=== PATIENT | male | born 1985 | race Caucasian/White ===

== ENCOUNTER 2023-11-10 10:35 | Observation (INO) ==
--- NOTE | 2023-11-10 10:52 | ED.PDOC ---
General ED Provider: Dr. ALAINA SIN MD Chief Complaint: Abdominal Pain Stated Complaint: Patient with a history of ulcerative colitis complains of upper abdominal pain since yesterday associated with frequent episodes of watery diarrhea. Patient unsure of fever, denies chills, nausea, vomiting, urinary symptoms, ration of the pain pain to his back. Patient rates his pain as 7/10. Time Seen by Provider: 11/10/23 10:50 Mode of Arrival: Walk-In Information Source: Patient Exam Limitations: No limitations and Clinical condition Nursing and Triage Documentation Reviewed and Agree: Yes What is Opioid Naive?: *Opioid Naive implies the patient is not already taking opioids or not chronically receiving opioids on a daily basis. *PRN dosing is not "usually" associated with tolerance. *Patients are at higher risk of over-sedation and aspiration. What is Opioid Tolerant?: *Opioid Tolerance implies less than the expected response to an opioid. *Acquired tolerance is defined by the patient taking 60mg of oral morphine daily (or equianalgesic dose of another opioid) for 1 week or more. *Often associated with chronic pain. *May take more than usual dose to achieve desired pain control. Review of Systems Review Of Systems Constitutional: Reports No symptoms Eyes: Reports No symptoms Ears, Nose, Mouth, Throat: Reports No symptoms Respiratory: Reports No symptoms Cardiac: Reports No symptoms GI: Reports Abdominal pain and Diarrhea : Reports No symptoms Musculoskeletal: Reports No symptoms Skin: Reports No symptoms Neurological: Reports No symptoms Endocrine: Reports No symptoms Hematologic/Lymphatic: Reports No symptoms All Other Systems: Reviewed and Negative Physical Exam Physical Exam Appearance: Reports Well-appearing Ill-appearing: None Pain Distress: None Eyes: Reports RODERICK and EOMI ENT: Reports Ears normal Neck: Supple Respiratory: Reports Airway patent, Breath sounds clear and Breath sounds equal Cardiovascular: Reports RRR, Pulses normal and No murmur GI/: Reports Soft, Bowel sounds normal, No Organomegaly and Tender (There is moderate epigastric and left upper quadrant tenderness with no guarding, no palpable mass noted.) Musculoskeletal: Reports Normal strength, ROM intact, No edema and No calf tenderness Skin: Reports Warm and Dry Neurological: Reports Sensation intact and Motor intact Psychiatric: Reports Affect appropriate Critical Care Note Critical Care Note Total Critical Care Time (mins): 0 Course Course 11/10/23 11:14 11/10/23 11:14 Orders, Labs, Meds: Lab Review 11/10/23 11:14 WBC 7.65 RBC 4.82 Hgb 14.5 Hct 43.0 MCV 89.2 MCH 30.1 MCHC 33.7 RDW Coeff of Prateek 12.0 Plt Count 163 Immature Gran % (Auto) 0.3 Neut % (Auto) 75.0 Lymph % (Auto) 11.0 [place] % (Auto) 13.1 H Eos % (Auto) 0.3 Baso % (Auto) 0.3 Neut # (Auto) 5.8 Lymph # (Auto) 0.8 [place] # (Auto) 1.0 Eos # (Auto) 0.0 Baso # (Auto) 0.0 Immature Gran # (Auto) 0.0 Sodium 136.8 Potassium 4.02 Chloride 104.5 Carbon Dioxide 26.9 Anion Gap 9.42 BUN 11.3 Creatinine 1.22 H Estimated GFR (MDRD) 66.00 BUN/Creatinine Ratio 9.26 Glucose 114.1 H Calcium 9.05 Magnesium 1.91 Total Bilirubin 0.39 AST 34.3 ALT 20.5 Alkaline Phosphatase 48.9 Total Protein 7.30 Albumin 4.34 Globulin 2.96 Albumin/Globulin Ratio 1.46 Lipase 152.1 Orders Category Date Time Status NPO REMINDER: IMAGING ONCE CARE 11/10/23 10:58 Active BLOOD CULTURE (ED ONLY) Stat LAB 11/10/23 12:56 Received CBC W/ AUTO DIFF Stat LAB 11/10/23 11:14 Completed CMP [COMPREHENSIVE METABOLIC PANEL] Stat LAB 11/10/23 11:14 Completed LIPASE Stat LAB 11/10/23 11:14 Completed MAGNESIUM Stat LAB 11/10/23 11:14 Completed ROTAVIRUS,STOOL Stat LAB 11/10/23 10:59 Uncollected STOOL CULTURE Stat LAB 11/10/23 Uncollected URINALYSIS C & S IF INDICATED Stat LAB 11/10/23 10:59 Uncollected Ketorolac Tromethamine [Toradol] Meds 11/10/23 10:57 Discontinued 30 mg IVP ONCE STA Levofloxacin/D5w [Levaquin 750 mg/150 ml D5w] Meds 11/10/23 12:28 Active 750 mg in 150 ml IV ONCE Sodium Chloride 0.9% [Sodium Chloride] 1,000 ml Meds 11/10/23 10:[address] ABDOMEN/PELVIS W CONTRAST Stat RADS 11/10/23 10:57 Completed Medications Generic Name Dose Route Start Last Admin Trade Name Luiz PRN Reason Stop Dose Admin Levofloxacin/Dextrose 750 mg in 150 mls @ 100 mls/hr 11/10/23 12:28 11/10/23 13:06 Levaquin 750 Mg/150 Ml D5w IV 11/10/23 13:57 100 mls/hr ONCE ONE Administration Discontinued Medications Generic Name Dose Route Start Last Admin Trade Name Freq PRN Reason Stop Dose Admin Sodium Chloride 1,000 mls @ 1,000 mls/hr 11/10/23 10:57 11/10/23 12:28 Sodium Chloride IV 11/10/23 11:56 Infused BOLUS ONE Infusion Ketorolac Tromethamine 30 mg 11/10/23 10:57 11/10/23 11:24 Ketorolac Tromethamine 30 Mg/Ml Vial IVP 11/10/23 10:58 30 mg ONCE STA Administration Vital Signs: Temp Pulse Resp BP Pulse Ox 11/10/23 10:48 98.5 F 70 18 123/81 97 Discharge Plan Discharge Patient Disposition: ADMITTED INPATIENT Discharge Problem: Acute colitis Prescriptions: No Action mesalamine PO Did you review [place] [employer] for ALL controlled substances?: Not Applicable ED Provider: ALAINA SIN Condition: Stable Physician Progress Note: History obtained from the patient who has a history of ulcerative colitis, complains acute onset of epigastric and upper abdominal pain associated with frequent episodes of watery diarrhea. Patient with a history of fever, denies chills melena urinary symptoms and radiation of pain to his back. Patient rates his pain scale is 7/10. Patient given IV fluids normal saline 1 L bolus of 1 hour Toradol 30 mg IV The abdominal pelvic CT scan with intravenous contrast interpreted by radiology consistent with liver, gallbladder, bile ducts, pancreas, spleen and adrenal glands over normal limits the GI tract normal caliber there is a normal appendix there is marked wall thickening submucosal edema of the ascending colon and transverse colon suggestive of colitis there are punctate nonobstructing bilateral renal calculi After 2 sets of blood cultures were obtained the patient was administered Levaquin 750 mg IV piggyback Differential diagnosis: 1) acute ascending and transverse colitis Discussed with hospitalist Adina Dawson at 1310 for inpatient admission
[2023-11-10 11:17] LABS: BASOPHILS % (AUTO) 0.3 % (0.0-3.0); EOSINOPHILS % (AUTO) 0.3 % (0.0-7.0); HEMOGLOBIN 14.5 g/dl (14.0-18.0); IMMATURE GRANULOCYTE % (AUTO) 0.3 % (0.0-5.0); LYMPHOCYTES # (AUTO) 0.8 K/uL (0.60-3.4); MEAN CORPUSCULAR HEMOGLOBIN 30.1 pg (27.0-31.0); MEAN CORPUSCULAR HGB CONC 33.7 (31.8-35.4); MEAN CORPUSCULAR VOLUME 89.2 fl (80.0-94.0); MONOCYTES % (AUTO) 13.1 (0-10); NEUTROPHILS # (AUTO) 5.8 K/ul (2.0-6.9); PLATELET COUNT 163 10^3/uL (140-440); RED BLOOD COUNT 4.82 10^6/ul (4.70-6.10); WHITE BLOOD COUNT 7.65 K/ul (4.2-10.2)
[2023-11-10] MEDS: SODIUM CHLORIDE 1,000 ML IV ONE (11:23)
[2023-11-10] MEDS: TORADOL IVP STA (11:24)
[2023-11-10 11:32] LABS: ALANINE AMINOTRANSFERASE 20.5 U/L (0-50); ALBUMIN 4.34 g/dL (3.5-5.0); ALKALINE PHOSPHATASE 48.9 U/L (38-126); ASPARTATE AMINO TRANSFERASE 34.3 U/L (17-59); BILIRUBIN,TOTAL 0.39 mg/dL (0.2-1.3); BLOOD UREA NITROGEN 11.3 mg/dL (9-20); CALCIUM 9.05 mg/dL (8.4-10.2); CARBON DIOXIDE 26.9 mmol/L (22-30.0); CHLORIDE 104.5 mmol/L (98-107); CREATININE 1.22 mg/dL (0.60-1.10); GLUCOSE 114.1 mg/dL (74-106); LIPASE 152.1 U/L (23-300); MAGNESIUM 1.91 mg/dL (1.6-2.3); POTASSIUM 4.02 mmol/L (3.5-5.1); SODIUM 136.8 mmol/L (134.5-145); TOTAL PROTEIN 7.3 g/dL (6.3-8.2)
--- NOTE | 2023-11-10 12:23 | CT ---
EXAM: CT OF THE ABDOMEN AND PELVIS WITH CONTRAST COMPARISON: None. HISTORY: Abdominal pain. Diarrhea. TECHNIQUE: Axial CT images were obtained through the abdomen and pelvis with the administration of in travenous contrast. Coronal and sagittal reformatted images were also submitted for interpretation. FINDINGS: Liver: Possible hepatic steatosis. Correlation LFTs recommended. Liver is enlarged and 19.5 cm. Gallbladder: No gallstones. Bile ducts: No intra or extrahepatic biliary ductal dilatation. Pancreas: No lesions. The main pancreatic duct is not dilated. Spleen: The spleen is enlarged measuring up to 13.3 cm. Adrenal glands: Within normal limits. Kidneys: No hydronephrosis. Punctate nonobstructing bilateral renal calculi. Ureters: Within normal limits Urinary bladder: Bladder wall thickening which may be secondary to underdistension versus cystitis ve rsus bladder outlet obstruction. Correlation with urinalysis recommended. Reproductive organs: No pelvic masses. Peritoneum: No ascites or free intraperitoneal air. Gastrointestinal tract: Normal caliber. Normal appendix. Marked wall thickening submucosal edema e jeramie in the ascending colon and transverse colon suggestive of colitis. Clinical correlation advised . Lymph nodes: No lymphadenopathy. Vessels: Normal caliber. Abdominal wall: Within normal limits. Osseous structures: No acute findings. Lower thorax: Minimal atelectasis. IMPRESSION: - Marked wall thickening in the ascending colon and transverse colon suggestive of colitis. Clinical correlation advised. - Bladder wall thickening which may be secondary to underdistension versus cystitis versus bladder ou tlet obstruction. Correlation with urinalysis recommended. - Punctate nonobstructing bilateral renal calculi. - Hepatomegaly and possible hepatic steatosis. Correlation with LFTs recommended. - Mild splenomegaly of unknown clinical significance. All CT scans are performed using dose optimization techniques as appropriate to the performed exam an d include at least one of the following: Automated exposure control, adjustment of the mA and/or kV according t o size, and the use of iterative reconstruction technique.
[2023-11-10] MEDS: LEVAQUIN 750 MG/150 ML D5W 750 MG/150 ML BAG IV ONE (13:06)
--- NOTE | 2023-11-10 13:18 | PCM ---
Date of Service Date Seen by Provider: 11/10/23 Time Seen by Provider: 13:30 Admit Day/Time Admission Date: 11/10/23 Admission Time: 13:16 Reason for Admission Chief Complaint: ACUTE COLITIS Hospital Provider Hospital Provider: Adina Dawson PA-C, [facility] History of Present Illness History of Present Illness: Patient is a 38 year old male with pmhx of ulcerative colitis who presents for worsening epigastric pain and diarrhea since yesterday. Patient states he drank alcohol two days ago which he contributes to this flare up. He had upper and lower scopes 1-2 months ago "which looked good." He does not currently have a GI as he was at [place] when he had this work up. He takes mesalamine for maintenance therapy. He denies blood in his stool. In ER labs are unremarkable but CT a/p showed marked wall thickening of ascending and transverse colon suggestive of colitis. He was given levaquin and toradol. He was admitted to med surg. Case Discussed With Case Discussed With: Patient's case was discussed with the ER Physicians, Dr. Brown Allergies Allergies Allergy/AdvReac Type Severity Reaction Status Date / Time chlorhexidine AdvReac Rash Verified 11/10/23 10:48 [From ChloraPrep Clear] isopropyl alcohol AdvReac Rash Verified 11/10/23 10:48 [From ChloraPrep Clear] Current Medications Home Medications mesalamine PO 11/10/23 [History Last Taken Unknown] Home Acetaminophen (Acetaminophen 325 Mg Tablet) 650 mg PO Q4H PRN PRN Reason: Mild Pain Levofloxacin/Dextrose (Levaquin 750 Mg/150 Ml D5w) 750 mg in 150 mls @ 100 mls/hr IV ONCE ONE Stop: 11/10/23 13:57 Last Admin: 11/10/23 13:06 Dose: 100 mls/hr Methylprednisolone Sodium Succinate (Methylprednisolone Sod Succ/Pf 40 Mg/Ml Vial) 20 mg IVP Q8HR LONNIE Morphine Sulfate (Morphine Sulfate 2 Mg/Ml Syringe) 1 mg IVP Q6H PRN PRN Reason: MODERATE PAIN Ondansetron HCl (Ondansetron Hcl/Pf 4 Mg/2 Ml Sdv) 4 mg IVP Q6H PRN PRN Reason: Nausea / Vomiting Discontinued Medications Sodium Chloride (Sodium Chloride) 1,000 mls @ 1,000 mls/hr IV BOLUS ONE Stop: 11/10/23 11:56 Last Infusion: 11/10/23 12:28 Dose: Infused Ketorolac Tromethamine (Ketorolac Tromethamine 30 Mg/Ml Vial) 30 mg IVP ONCE STA Stop: 11/10/23 10:58 Last Admin: 11/10/23 11:24 Dose: 30 mg Opioid Naive vs. Tolerant Does Patient Take Opioids?: No Is Patient Opioid Naive?: Yes What is Opioid Naive?: *Opioid Naive implies the patient is not already taking opioids or not chr onically receiving opioids on a daily basis. *PRN dosing is not "usually" associated with tolerance. *Patients are at higher risk of over-sedation and aspiration. Is Patient Opioid Tolerant?: No What is Opioid Tolerant?: *Opioid Tolerance implies less than the expected response to an opioid. *Acquired tolerance is defined by the patient taking 60mg of oral morphine daily (or equianalgesic dose of another opioid) for 1 week or more. *Often associated with chronic pain. *May take more than usual dose to achieve desired pain control. Review of Systems Constitutional: Denies Fever or Weakness Cardiovascular: Denies Chest pain, Chest Pressure or Edema Respiratory: Denies Cough or Shortness of air Gastrointestinal: Reports Diarrhea and Abdominal pain; Denies Nausea, Vomiting, Black Tarry Stools or Melena Genitourinary: Denies Dysuria or Hematuria Dermatologic: Denies Rashes Physical examination Most Recent Vital Signs: Most Recent Vital Signs Temperature 98.5 F 11/10/23 10:48 Temperature Source Oral 11/10/23 10:48 Pulse Rate 70 11/10/23 10:48 Respiratory Rate 18 11/10/23 10:48 Blood Pressure 123/81 11/10/23 10:48 O2 Sat by Pulse Oximetry 97 11/10/23 10:48 Height 5 ft 11 in 11/10/23 10:48 Weight 243 lb 2.718 oz 11/10/23 10:48 Appearance: Positive Well-appearing, Well-nourished, No Apparent Distress and Alert and Oriented x3 Skin: Positive [place], Warm, Good Turgor and Good Color HEENT: Positive Normocephalic and Atraumatic Neck: Positive Supple and Midline Trachea Chest/Lungs: Positive Clear to Auscultation Bilaterally; Negative Rales, Rhonci or Wheezes Heart: Positive RRR GI/: Positive Soft, Bowel Sounds Normal, No Distention and Tender (+epigastric area ); Negative Nontender Extremities: Negative Edema Neurological: Positive Cranial Nerves Intact, Alert, Oriented and Muscle Strength 5/5 in Upper and Lower Extremities Bilaterally Psychiatric: Positive Oriented x4, Appropriate Mood and Appropriate Affect Labs This Visit Labs This Visit: Labs This Visit 11/10/23 11:14 WBC 7.65 RBC 4.82 Hgb 14.5 Hct 43.0 MCV 89.2 MCH 30.1 MCHC 33.7 RDW Coeff of Prateek 12.0 Plt Count 163 Immature Gran % (Auto) 0.3 Neut % (Auto) 75.0 Lymph % (Auto) 11.0 [place] % (Auto) 13.1 H Eos % (Auto) 0.3 Baso % (Auto) 0.3 Neut # (Auto) 5.8 Lymph # (Auto) 0.8 [place] # (Auto) 1.0 Eos # (Auto) 0.0 Baso # (Auto) 0.0 Immature Gran # (Auto) 0.0 Sodium 136.8 Potassium 4.02 Chloride 104.5 Carbon Dioxide 26.9 Anion Gap 9.42 BUN 11.3 Creatinine 1.22 H Estimated GFR (MDRD) 66.00 BUN/Creatinine Ratio 9.26 Glucose 114.1 H Calcium 9.05 Magnesium 1.91 Total Bilirubin 0.39 AST 34.3 ALT 20.5 Alkaline Phosphatase 48.9 Total Protein 7.30 Albumin 4.34 Globulin 2.96 Albumin/Globulin Ratio 1.46 Lipase 152.1 Imaging Imaging: EXAM: CT OF THE ABDOMEN AND PELVIS WITH CONTRAST COMPARISON: None. HISTORY: Abdominal pain. Diarrhea TECHNIQUE: Axial CT images were obtained through the abdomen and pelvis with the administration of intravenous contrast. Coronal and sagittal reformatted images were also submitted for interpretation. FINDINGS: Liver: Possible hepatic steatosis. Correlation LFTs recommended. Liver is enlarged and 19.5 cm. Gallbladder: No gallstones. Bile ducts: No intra or extrahepatic biliary ductal dilatation. Pancreas: No lesions. The main pancreatic duct is not dilated. Spleen: The spleen is enlarged measuring up to 13.3 cm. Adrenal glands: Within normal limits. Kidneys: No hydronephrosis. Punctate nonobstructing bilateral renal calculi. Ureters: Within normal limits Urinary bladder: Bladder wall thickening which may be secondary to underdistension versus cystitis versus bladder outlet obstruction. Correlation with urinalysis recommended. Reproductive organs: No pelvic masses. Peritoneum: No ascites or free intraperitoneal air. Gastrointestinal tract: Normal caliber. Normal appendix. Marked wall thickening submucosal edema edema in the ascending colon and transverse colon suggestive of colitis. Clinical correlation advised. Lymph nodes: No lymphadenopathy. Vessels: Normal caliber. Abdominal wall: Within normal limits. Osseous structures: No acute findings. Lower thorax: Minimal atelectasis. IMPRESSION: - Marked wall thickening in the ascending colon and transverse colon suggestive of colitis. Clinical correlation advised. - Bladder wall thickening which may be secondary to underdistension versus cystitis versus bladder outlet obstruction. Correlation with urinalysis recommended. - Punctate nonobstructing bilateral renal calculi. - Hepatomegaly and possible hepatic steatosis. Correlation with LFTs recommended. - Mild splenomegaly of unknown clinical significance. Review Statement Review Statement: I have independently reviewed and interpreted the labs/EKGs/imaging that were ordered by the ER provider. I have reviewed all outside records that are available currently in our EMR including imaging/notes/labs from previous visits. Plan Plan: 1. Acute ulcerative colitis flare - Cont mesalamine. Start solumedrol 20 mg IVP q8hrs. Regular diet if no vomiting. Pain control with tylenol or morphine prn. Zofran prn for n/v. Will need outpt GI follow up. DVT Prophylaxis: Ambulation Time Spent: Greater than 80 minutes spent with patient, 50% of the time spent with this patient was devoted to counseling and coordination of care. Advanced Care Plannin minutes spent discussing advance care planning. Admit to: Inpt Discussed Plan of Care with Dr. Nathaniel Gomez. Medications Medication Orders: Medications Ordered Category Date Time Status Levofloxacin/D5w [Levaquin 750 mg/150 ml D5w] Meds 11/10/23 12:28 Active 750 mg in 150 ml IV ONCE
[2023-11-10] MEDS ORDERED: TYLENOL PO PRN (13:47)
[2023-11-10] MEDS ORDERED: MORPHINE 2 MG/ML SYRINGE IVP PRN (13:47)
[2023-11-10] MEDS ORDERED: ZOFRAN 4 MG/2 ML IVP PRN (13:47)
[2023-11-10 13:50] LABS: SARS COV-2 RNA RAPID NAAT NEGATIVE (NEGATIVE)
[2023-11-10 14:35] VITALS: BMI 34.4
[2023-11-10] MEDS: SOLU-MEDROL 40 MG IVP SCH (14:53)
[2023-11-10] MEDS: TORADOL IVP PRN (19:52)
[2023-11-10 20:57] VITALS: RESP 18
[2023-11-10 20:59] LABS: BILIRUBIN,URINE Negative (NEGATIVE); CLARITY,URINE Clear (CLEAR); COLOR,URINE Yellow (YELLOW); GLUCOSE, URINE (UA) Negative (NEGATIVE); KETONES,URINE Trace (NEGATIVE); LEUKOCYTE ESTERASE ,URINE Negative (NEGATIVE); NITRITE,URINE Negative (NEGATIVE); PROTEIN,URINE Negative (NEGATIVE); URINE, BLOOD Trace-intact (NEGATIVE); UROBILINOGEN,URINE 0.2 (0.2)
[2023-11-10 21:02] LABS: SQUAMOUS EPITHELIAL CELL,UR 0-2 (0-5)
[2023-11-11 05:15] VITALS: BP 139/74; PULSE 53; TEMP 97
[2023-11-11 05:18] LABS: IMMATURE GRANULOCYTE % (AUTO) 0.3 % (0.0-5.0); LYMPHOCYTES # (AUTO) 0.8 K/uL (0.60-3.4); LYMPHOCYTES % (AUTO) 11.1 (10.0-50.0); MEAN CORPUSCULAR HGB CONC 33.3 (31.8-35.4); MEAN CORPUSCULAR VOLUME 89.9 fl (80.0-94.0); MONOCYTES # (AUTO) 0.4 K/uL (0.4-2.0); MONOCYTES % (AUTO) 6.3 (0-10); NEUTROPHILS # (AUTO) 5.7 K/ul (2.0-6.9); NEUTROPHILS % (AUTO) 82.3 % (42.2-75.2); PLATELET COUNT 160 10^3/uL (140-440); RED BLOOD COUNT 4.67 10^6/ul (4.70-6.10); WHITE BLOOD COUNT 6.93 K/ul (4.2-10.2)
[2023-11-11 05:35] LABS: ALANINE AMINOTRANSFERASE 18.9 U/L (0-50); ALBUMIN 4.2 g/dL (3.5-5.0); ALKALINE PHOSPHATASE 43.6 U/L (38-126); ASPARTATE AMINO TRANSFERASE 29.9 U/L (17-59); BILIRUBIN,TOTAL 0.3 mg/dL (0.2-1.3); BLOOD UREA NITROGEN 11.6 mg/dL (9-20); CALCIUM 9.15 mg/dL (8.4-10.2); CARBON DIOXIDE 23.9 mmol/L (22-30.0); CHLORIDE 106.8 mmol/L (98-107); CREATININE 1.07 mg/dL (0.60-1.10); GLUCOSE 150.2 mg/dL (74-106); POTASSIUM 4.46 mmol/L (3.5-5.1); SODIUM 137.6 mmol/L (134.5-145); TOTAL PROTEIN 7.2 g/dL (6.3-8.2)
[2023-11-11] MEDS: MESALAMINE 1.2 GM PO SCH (07:19)
--- NOTE | 2023-11-11 09:06 | PCM.SS ---
Provider Provider: YESY LIU, [facility] Chief Complaint Reason For Visit: ACUTE COLITIS History of Present Illness History of Present Illness: Admitted 11/10/23 13:54, this 38 year old /WHITE/M [] [facility] Surgical History (Updated 11/10/23 @ 14:29 by DANN ROBERTSON, RN) History of rhinoplasty Z98.890 - Other specified postprocedural states (ICD-10) History of hip surgery Z98.890 - Other specified postprocedural states (ICD-10) Family History (Updated 11/10/23 @ 14:29 by DANN ROBERTSON, RN) Other No known health problems Social History (Updated 11/10/23 @ 14:29 by DANN ROBERTSON, RN) Smoking and tobacco status: Never smoker Substance use type: marijuana Medications Mecications: Medications at Discharge (Home Meds & RX) mesalamine 1.2 g PO BID 11/10/23 Allergies Allergies Allergy/AdvReac Type Severity Reaction Status Date / Time chlorhexidine AdvReac Rash Verified 11/10/23 10:48 [From ChloraPrep Clear] isopropyl alcohol AdvReac Rash Verified 11/10/23 10:48 [From ChloraPrep Clear] Vital Signs (Last 4 Hours) Vital Signs Last 4 Hours: Vital Signs: Last 4 Hours 11/11/23 05:14 Temperature 97.0 F L Temperature Source Temporal Artery Scan Pulse Rate 53 L Respiratory Rate 18 Blood Pressure 139/74 Blood Pressure Mean 95 Blood Pressure Location Left Arm Blood Pressure Position Supine O2 Sat by Pulse Oximetry 95 Oxygen Delivery Method Room Air Labs This Visit Labs This Visit: Labs This Visit 11/10/23 11/10/23 11/10/23 11:14 13:25 20:53 WBC 7.65 RBC 4.82 Hgb 14.5 Hct 43.0 MCV 89.2 MCH 30.1 MCHC 33.7 RDW Coeff of Prateek 12.0 Plt Count 163 Immature Gran % (Auto) 0.3 Neut % (Auto) 75.0 Lymph % (Auto) 11.0 [place] % (Auto) 13.1 H Eos % (Auto) 0.3 Baso % (Auto) 0.3 Neut # (Auto) 5.8 Lymph # (Auto) 0.8 [place] # (Auto) 1.0 Eos # (Auto) 0.0 Baso # (Auto) 0.0 Immature Gran # (Auto) 0.0 Sodium 136.8 Potassium 4.02 Chloride 104.5 Carbon Dioxide 26.9 Anion Gap 9.42 BUN 11.3 Creatinine 1.22 H Estimated GFR (MDRD) 66.00 BUN/Creatinine Ratio 9.26 Glucose 114.1 H Calcium 9.05 Magnesium 1.91 Total Bilirubin 0.39 AST 34.3 ALT 20.5 Alkaline Phosphatase 48.9 Total Protein 7.30 Albumin 4.34 Globulin 2.96 Albumin/Globulin Ratio 1.46 Lipase 152.1 Urine Color Yellow Urine Clarity Clear Urine pH 7.0 Ur Specific [place] 1.025 Urine Protein Negative Urine Glucose (UA) Negative Urine Ketones Trace H Urine Blood Trace-intact H Urine Nitrite Negative Urine Bilirubin Negative Urine Urobilinogen 0.2 Ur Leukocyte Esterase Negative Urine Microscopic RBC 2-5 Ur Squamous Epith Cells 0-2 SARS CoV-2 RNA Rapid BRI Negative 11/11/23 05:13 WBC 6.93 RBC 4.67 L Hgb 14.0 Hct 42.0 MCV 89.9 MCH 30.0 MCHC 33.3 RDW Coeff of Prateek 12.0 Plt Count 160 Immature Gran % (Auto) 0.3 Neut % (Auto) 82.3 H Lymph % (Auto) 11.1 [place] % (Auto) 6.3 Eos % (Auto) 0.0 Baso % (Auto) 0.0 Neut # (Auto) 5.7 Lymph # (Auto) 0.8 [place] # (Auto) 0.4 Eos # (Auto) 0.0 Baso # (Auto) 0.0 Immature Gran # (Auto) 0.0 Sodium 137.6 Potassium 4.46 Chloride 106.8 Carbon Dioxide 23.9 Anion Gap 11.36 BUN 11.6 Creatinine 1.07 Estimated GFR (MDRD) 77.00 BUN/Creatinine Ratio 10.84 Glucose 150.2 H Calcium 9.15 Magnesium Total Bilirubin 0.30 AST 29.9 ALT 18.9 Alkaline Phosphatase 43.6 Total Protein 7.20 Albumin 4.20 Globulin 3.00 Albumin/Globulin Ratio 1.40 Lipase Urine Color Urine Clarity Urine pH Ur Specific [place] Urine Protein Urine Glucose (UA) Urine Ketones Urine Blood Urine Nitrite Urine Bilirubin Urine Urobilinogen Ur Leukocyte Esterase Urine Microscopic RBC Ur Squamous Epith Cells SARS CoV-2 RNA Rapid BRI Review Review Statement: I have independently reviewed and interpreted the labs/EKGs/imaging that were ordered by the ER provider. I have reviewed all outside records that are available currently in our EMR including imaging/notes/labs from previous visits. Plan Additional Planning: Case discussed with ED Physician, []. DVT Prophylaxis: Advanced Care Planning: [] minutes spent discussing advance care planning. Smoking Cessation: 3-10 minutes spent discussing smoking cessation. Disposition: Admit to: Discussed Plan of Care with DrJoseph [] If patient discharged with Left Ventricular Systolic Dysfunction: Discharged with a beta cuong? [] If no, why not? [] Discharged with an edison/arb? [] If no, why not? [] Review With Patient Reviewed with Patient and Family: Patient and family have been counseled on condition and care plan and have no immediate questions. I have personally discussed and reviewed the patient's visit/current labs/imaging/decision making with Dr. Nathaniel Gomez, my supervising attending. Total number of minutes spent with patient [ ] min. More than 50% of the time spent with this patient was devoted to counseling and coordination of care. Time of Admission:11/10/23 13:54 Time of Discharge: Discharge Plan Discharge Discharge Orders: Discharge Patient (ONCE); Ordered 11/11/23 Ordered By: ARUN NOVA Activity Restrictions/Additional Instructions: Diet: [place], advance as tolerated Activity: as tolerated Medications: Prednisone pack - take as directed until complete Follow-up with PCP as scheduled. Discuss referral to GI with PCP for management of your Ulcerative Colitis. Instructions: Ulcerative Colitis (GEN) Patient Disposition: HOME SELF-CARE Prescriptions: New prednisone 10 mg tablets,dose pack See Rx Instructions .ROUTE .COMPLEX Qty: 21 0RF Rx Instructions: orally per package directions Continued mesalamine 1.2 g PO BID Did you review [place] [employer] for ALL controlled substances?: No Discussed opioids are addictive and Narcan is available by prescription or from pharmacy.: No Condition: Stable Referrals: MARCELA THOMPSON APRN [NURSE PRACTITIONER] - 11/13/23 10:15 am (THIS IS A HOSPITAL FOLLOW UP, FOLLOWING THIS APPOINTMENT YOU CAN ESTABLISH CARE WITH [facility])
--- NOTE | 2023-11-11 10:31 | DCSUM ---
Admission Date Admission Date: 11/10/23 Discharge Date Discharge Date: 11/11/23 Admission Diagnosis Admission Diagnosis: 1. Acute ulcerative colitis flare Discharge Diagnosis Discharge Diagnosis: 1. Acute ulcerative colitis flare - Improving, pain improved Hospital Provider Hospital [facility] Summary of History and Physical Summary of History and Physical: Patient is a 38 year old male with pmhx of ulcerative colitis who presents for worsening epigastric pain and diarrhea since yesterday. Patient states he drank alcohol two days ago which he contributes to this flare up. He had upper and lower scopes 1-2 months ago "which looked good." He does not currently have a GI as he was at [place] when he had this work up. He takes mesalamine for maintenance therapy. He denies blood in his stool. In ER labs are unremarkable but CT a/p showed marked wall thickening of ascending and transverse colon suggestive of colitis. He was given levaquin and toradol. He was admitted to med surg. Hospital Course Subjective: During stay, patient received solu-medrol 20 mg IVP q8h. No episodes of vomiting occurred and has tolerated regular diet. Pain controlled with tylenol and has not required IV morphine. Patient did not have PCP in the area. [employer] workers setup patient with [facility] and recommend GI referral to be sent at hospital follow-up appointment for management of chronic ulcerative colitis. Continue home mesalamine as prescribed. Sent in prednisone pack taper until com pleted. Appearance: Pleasant, No Apparent Distress and Alert HEENT: MMM, Supple and No JVD CVS: No Murmur, No Rubs and No Gallop Abdomen: Soft, Non-Tender and No Distention Respiratory: No Dyspnea Extremities: No Edema Vital Signs: Most Recent Vital Signs Temperature 97.0 F L 11/11/23 05:14 Temperature Source Temporal Artery Scan 11/11/23 05:14 Temperature Source Oral 11/10/23 10:48 Pulse Rate 53 L 11/11/23 05:14 Respiratory Rate 18 11/11/23 05:14 Blood Pressure 139/74 11/11/23 05:14 Blood Pressure Mean 95 11/11/23 05:14 Blood Pressure Left Arm 150/98 11/10/23 14:30 Blood Pressure Location Left Arm 11/11/23 05:14 Blood Pressure Position Supine 11/11/23 05:14 O2 Sat by Pulse Oximetry 95 11/11/23 05:14 Oxygen Delivery Method Room Air 11/11/23 08:00 Height 5 ft 11 in 11/10/23 15:32 Weight 247 lb 11/10/23 15:32 Imaging: EXAM: CT OF THE ABDOMEN AND PELVIS WITH CONTRAST FINDINGS: Liver: Possible hepatic steatosis. Correlation LFTs recommended. Liver is enlarged and 19.5 cm. Gallbladder: No gallstones. Bile ducts: No intra or extrahepatic biliary ductal dilatation. Pancreas: No lesions. The main pancreatic duct is not dilated. Spleen: The spleen is enlarged measuring up to 13.3 cm. Adrenal glands: Within normal limits. Kidneys: No hydronephrosis. Punctate nonobstructing bilateral renal calculi. Ureters: Within normal limits Urinary bladder: Bladder wall thickening which may be secondary to underdistension versus cystitis versus bladder outlet obstruction. Correlation with urinalysis recommended. Reproductive organs: No pelvic masses. Peritoneum: No ascites or free intraperitoneal air. Gastrointestinal tract: Normal caliber. Normal appendix. Marked wall thickening submucosal edema edema in the ascending colon and transverse colon suggestive of colitis. Clinical correlation advised. Lymph nodes: No lymphadenopathy. Vessels: Normal caliber. Abdominal wall: Within normal limits. Osseous structures: No acute findings. Lower thorax: Minimal atelectasis. IMPRESSION: - Marked wall thickening in the ascending colon and transverse colon suggestive of colitis. Clinical correlation advised. - Bladder wall thickening which may be secondary to underdistension versus cystitis versus bladder outlet obstruction. Correlation with urinalysis recommended. - Punctate nonobstructing bilateral renal calculi. - Hepatomegaly and possible hepatic steatosis. Correlation with LFTs recommended. - Mild splenomegaly of unknown clinical significance. Lab Results Last 24 Hours: 11/11/23 11/10/23 11/10/23 05:13 20:53 13:25 WBC 6.93 RBC 4.67 L Hgb 14.0 Hct 42.0 MCV 89.9 MCH 30.0 MCHC 33.3 RDW Coeff of Prateek 12.0 Plt Count 160 Immature Gran % (Auto) 0.3 Neut % (Auto) 82.3 H Lymph % (Auto) 11.1 Long % (Auto) 6.3 Eos % (Auto) 0.0 Baso % (Auto) 0.0 Neut # (Auto) 5.7 Lymph # (Auto) 0.8 Long # (Auto) 0.4 Eos # (Auto) 0.0 Baso # (Auto) 0.0 Immature Gran # (Auto) 0.0 Sodium 137.6 Potassium 4.46 Chloride 106.8 Carbon Dioxide 23.9 Anion Gap 11.36 BUN 11.6 Creatinine 1.07 Estimated GFR (MDRD) 77.00 BUN/Creatinine Ratio 10.84 Glucose 150.2 H Calcium 9.15 Magnesium Total Bilirubin 0.30 AST 29.9 ALT 18.9 Alkaline Phosphatase 43.6 Total Protein 7.20 Albumin 4.20 Globulin 3.00 Albumin/Globulin Ratio 1.40 Lipase Urine Color Yellow Urine Clarity Clear Urine pH 7.0 Ur Specific [place] 1.025 Urine Protein Negative Urine Glucose (UA) Negative Urine Ketones Trace H Urine Blood Trace-intact H Urine Nitrite Negative Urine Bilirubin Negative Urine Urobilinogen 0.2 Ur Leukocyte Esterase Negative Urine Microscopic RBC 2-5 Ur Squamous Epith Cells 0-2 SARS CoV-2 RNA Rapid BRI Negative 11/10/23 11:14 WBC 7.65 RBC 4.82 Hgb 14.5 Hct 43.0 MCV 89.2 MCH 30.1 MCHC 33.7 RDW Coeff of [place]ateek 12.0 Plt Count 163 Immature Gran % (Auto) 0.3 Neut % (Auto) 75.0 Lymph % (Auto) 11.0 Long % (Auto) 13.1 H Eos % (Auto) 0.3 Baso % (Auto) 0.3 Neut # (Auto) 5.8 Lymph # (Auto) 0.8 Long # (Auto) 1.0 Eos # (Auto) 0.0 Baso # (Auto) 0.0 Immature Gran # (Auto) 0.0 Sodium 136.8 Potassium 4.02 Chloride 104.5 Carbon Dioxide 26.9 Anion Gap 9.42 BUN 11.3 Creatinine 1.22 H Estimated GFR (MDRD) 66.00 BUN/Creatinine Ratio 9.26 Glucose 114.1 H Calcium 9.05 Magnesium 1.91 Total Bilirubin 0.39 AST 34.3 ALT 20.5 Alkaline Phosphatase 48.9 Total Protein 7.30 Albumin 4.34 Globulin 2.96 Albumin/Globulin Ratio 1.46 Lipase 152.1 Urine Color Urine Clarity Urine pH Ur Specific [place] Urine Protein Urine Glucose (UA) Urine Ketones Urine Blood Urine Nitrite Urine Bilirubin Urine Urobilinogen Ur Leukocyte Esterase Urine Microscopic RBC Ur Squamous Epith Cells SARS CoV-2 RNA Rapid BRI Discharge Instructions Discharge Planning: Discharge Planning > 40 minutes If patient is discharged with left ventricular systolic dysfunction: NA Discharged with a beta cuong? [] If no, why not? [] Discharged with an edison/arb? [] If no, why not? [] Diet: [place], advance as tolerated Activity: as tolerated Medications: Prednisone pack - take as directed until complete Follow-up with PCP as scheduled. Discuss referral to GI with PCP for management of your Ulcerative Colitis. Discharge Medications: Medications at Discharge (Home Meds & RX) mesalamine 1.2 g PO BID 11/10/23 prednisone 10 mg tablets in a dose pack See Rx Instructions PO .COMPLEX #21 ea 11/11/23 Discharge Plan Discharge Discharge Orders: Discharge Patient (ONCE); Ordered 11/11/23 Ordered By: ARUN NOVA Activity Restrictions/Additional Instructions: Diet: [place], advance as tolerated Activity: as tolerated Medications: Prednisone pack - take as directed until complete Follow-up with PCP as scheduled. Discuss referral to GI with PCP for management of your Ulcerative Colitis. Instructions: Ulcerative Colitis (GEN) Patient Disposition: HOME SELF-CARE Prescriptions: New prednisone 10 mg tablets,dose pack See Rx Instructions .ROUTE .COMPLEX Qty: 21 0RF Rx Instructions: orally per package directions Continued mesalamine 1.2 g PO BID Did you review [place] [employer] for ALL controlled substances?: No Discussed opioids are addictive and Narcan is available by prescription or from pharmacy.: No Condition: Stable Referrals: MARCELA THOMPSON APRN [NURSE PRACTITIONER] - 11/13/23 10:15 am (THIS IS A HOSPITAL FOLLOW UP, FOLLOWING THIS APPOINTMENT YOU CAN ESTABLISH CARE WITH [facility])
== END 2023-11-11 09:41 | disposition home or self-care (01) ==
LOC: ED 10:35 → INTOOBSV 13:54 → MEDSURG B 13:54
PROVIDERS: ADMIT Hospitalist; ATTEND Nurse Practitioner Family
DX: R16.0 Hepatomegaly, not elsewhere classified; Z20.822 Contact with and (suspected) exposure to COVID-19; R16.1 Splenomegaly, not elsewhere classified; K51.90 Ulcerative colitis, unspecified, without complications; N20.0 Calculus of kidney